=== PATIENT | male | born 1975 ===

== ENCOUNTER 2017-11-19 05:21 | Inpatient (IN) | payer BC ==
--- NOTE | 2017-11-18 11:45 | Pre-op HX & Phy Repo 2 SIG ---
DATE OF SURGERY: 11/19/2017 HISTORY OF PRESENT ILLNESS: The patient is a 42-year-old preoperative tuqz-tk-hgergm gender reassignment surgery patient in stable health. The patient does not have any gastrointestinal or genitourinary symptomatology. He has normal bowel movements. No past history of anorectal disease. The patient is having no urinary issues. PAST MEDICAL HISTORY: MEDICATIONS: Metformin, lisinopril, finasteride, spironolactone, Lipitor. ALLERGIES: None. OPERATIONS: Only procedures related to gender transitioning. REVIEW OF SYSTEMS: The patient in the past had sleep apnea that resolved with weight loss. PHYSICAL EXAMINATION: GENERAL: The patient is 5 feet 9 inches, 220 pounds. ABDOMEN: Slightly obese and soft. EXTREMITIES: Femoral pulses are 3+. There is no inguinal lymphadenopathy. RECTAL: Reveals normal perianal skin and no prolapse. IMPRESSION: Gender dysphoria, preoperative fswr-[id number] sexual reassignment surgery. DISCUSSION: I have had a full discussion with the patient regarding my role in the surgery being performed by Dr. Zeus Dee including creating the space for the vagina and proctoscopy. I have discussed the nature of the procedure, alternatives, options, and risks including bleeding, infection, trauma or injury to urinary tract or rectum that could require additional procedures, etc. All questions have been answered. The patient understands and agrees to proceed. Myles Birmingham M.D. DR: Vasiliy JOB#: [id number] CC: [email or web address]
[~2017-11-19] VITALS: Ht 175.3 cm; Wt 0.5 kg
[2017-11-19] VITALS (13 sets, daily range): BP systolic 112–138; BP diastolic 70–79
[~2017-11-19 05:21] MED LIST: ATIVAN0.5 MG ORAL; LIPITOR10 MG ORAL; LISINOPRIL10 MG ORAL; METFORMIN HCL1000 M2 ORAL
[2017-11-19] MEDS ORDERED: Propofol 200mg/20ml IV ONE (06:49)
[2017-11-19] MEDS ORDERED: Lidocaine 1% MPF 10mg/ml 5ml ONE (06:49)
[2017-11-19] MEDS ORDERED: Bupivacaine 0.25% Inj 30ml INJ ONE (07:05)
[2017-11-19] MEDS ORDERED: Bacitracin 50000 Units Vial ONE (07:05)
[2017-11-19] MEDS ORDERED: NeoSporin Gu Irrig 1ml Amp IRRIG ONE (07:05)
[2017-11-19] MEDS ORDERED: Lidocaine 1% 10mg/ml/EPI 0.01mg/ml 50ml INJ ONE (07:05)
[2017-11-19] MEDS ORDERED: Zemuron 50mg/5ml Inj IV ONE (07:20)
[2017-11-19] MEDS ORDERED: fentaNYL 100 mcg/2 mL IV ONE (07:29)
[2017-11-19] MEDS ORDERED: LR 1000ml ONE (07:30)
[2017-11-19] MEDS ORDERED: Sterile Water Irrig 1000ml IRRIG ONE (07:30)
[2017-11-19] MEDS ORDERED: NS Irrig 1000ml ONE (07:30)
--- NOTE | 2017-11-19 07:45 | Anethesia Preoperative Eval ---
Anesthesia Pre-op PMH/ROS General Date of Evaluation: Nov 19, 2017 Time of Evaluation: 07:00 Anesthesiologist: ASA Score: ASA 3 Mallampati Score Class I : Soft palate, uvula, fauces, pillars visible Class II: Soft palate, uvula, fauces visible Class III: Soft palate, base of uvula visible Class IV: Only hard plate visible Mallampati Classification: Class II Surgeon: Alter Diagnosis: gender dysphoria Surgical Procedure: gender reassignment male to female Family History: no anesthesia problems Allergies: Coded Allergies: No Known Allergies (Unverified , 11/18/17) Medications: see eMAR Past Medical History Cardiovascular: Reports: HTN; Denies: CAD, VA, valve dz, arrhythmia, other Pulmonary: Reports: BRUNO; Denies: asthma, COPD, other Gastrointestinal/Genitourinary: Denies: GERD, CRI, ESRD, other Neurologic/Psychiatric: Denies: dementia, CVA, depression/anxiety, TIA, other Endocrine: Reports: DM; Denies: hypothyroidism, steroids, other HEENT: Denies: cataract (L), cataract (R), glaucoma, SALAMATOF (L), SALAMATOF (R), other Hematology/Immune: Denies: anemia, DVT, bleeding disorder, other PSxH Narrative: rhinoplasty, breast augmentation, buttock implants Anesthesia Pre-op Phys. Exam Physician Exam Last Vital Signs Date Time Temp Pulse Resp B/P (MAP) Pulse Ox O2 Delivery O2 Flow Rate FiO2 11/19/17 06:05 97.7 81 20 112/70 (84) 98 97.7 11/19/17 05:58 Room Air Constitutional: NAD Cardiovascular: RRR Respiratory: CTA Gastrointestinal: S/NT/ND Airway Exam Mallampati Score: Class II MO: full ROM: full Teeth: intact Dentures: no upper, no lower Anesthesia Pre-op A/P Risk Assessment & Plan Assessment: asa 3 Plan: ETGA Status Change Before Surgery: No Pre-Antibiotics Drug: Ancef 1 gram, gentamycin 80mg Given Within 1 Hr of Incision: Yes Time Given: 08:15 Medina Gonzales M.D. Nov 19, 2017 07:45
--- NOTE | 2017-11-19 08:00 | Pre-Procedure Note/Attestation ---
Pre-Procedure Note/Attestation Complete Prior to Procedure Planned Procedure: not applicable Procedure Narrative: Gender confirmation surgery Indications for Procedure Pre-Operative Diagnosis: Gender dysphoria Attestation I attest that I discussed the nature of the procedure; its benefits; risks and complications; and alternatives (and the risks and benefits of such alternatives ), prior to the procedure, with the patient (or the patient's legal agency sales representative). I attest that, if there was a reasonable possibility of needing a blood transfusion, the patient (or the patient's legal agency sales representative) was given the [facility] standardized written summary, pursuant to the [place] Blood Safety Act ([place] Health and Safety Code # 1645, as amended). I attest that I re-evaluated the patient just prior to the surgery and that there has been no change in the patient's H&P, except as documented below: Zues Dee MD Nov 19, 2017 08:00
[2017-11-19] MEDS ORDERED: Dexamethasone 4mg/ml vial ONE (13:41)
[2017-11-19] MEDS ORDERED: LR 1000ml 1,000 ML IVLG SCH (13:47)
--- NOTE | 2017-11-19 13:53 | Immediate Post-Op Evaluation ---
Immediate Post-Op Evalulation Immediate Post-Op Evalulation Procedure: male to female sexual reaasignment Date of Evaluation: Nov 19, 2017 Time of Evaluation: 14:49 IV Fluids: 2700ml Blood Products: 0 Estimated Blood Loss: 500ml Urinary Output: 250ml Blood Pressure Systolic: 133 Blood Pressure Diastolic: 76 Pulse Rate: 72 O2 Sat by Pulse Oximetry: 100 Temperature (Fahrenheit): 98 Pain Score (1-10): 0 Nausea: No Vomiting: No Complications none Patient Status: awake, patent, none Hydration Status: adequate Drug: ancef 1 gram, gentamycin 80 mg Given Within 1 Hr of Incision: Yes Time Given: 08:00 Medina Gonzales M.D. Nov 19, 2017 13:53
[2017-11-19] MEDS ORDERED: Midazolam 2mg/2ml Inj IVP PRN (14:00)
[2017-11-19] MEDS ORDERED: DiphenhydrAMINE 50mg/ml Inj IVP PRN (14:00)
[2017-11-19] MEDS ORDERED: Labetalol 5mg/ml 20ml vial IV PRN (14:00)
[2017-11-19] MEDS ORDERED: fentaNYL 100 mcg/2 mL IV PRN (14:00)
[2017-11-19] MEDS ORDERED: Glycopyrrolate 0.2mg/ml 1ml Vial ONE ×2 (14:22→14:35)
[2017-11-19] MEDS ORDERED: Neostigmine 1mg/ml 10ml Inj ONE (14:22)
--- NOTE | 2017-11-19 15:06 | Operative Note - PDOC ---
Operative Note Operative Note Chief Complaint: Gender dysphoria Pre-op Diagnosis: Gender dysphoria Procedure: male to female gender confirmation surgery. Post-op Diagnosis: same as pre-op Surgeon: samir Anesthesia: general Specimen: yes Complications: none Condition: stable Estimated Blood Loss: volume - 4 Drains: EDGAR Implant(s) used?: No Zeus Dee MD Nov 19, 2017 15:06
[2017-11-19] MEDS: Hydromorphone 0.5mg/0.5ml inj IVP PRN ×2 (15:21→16:10)
[2017-11-19] MEDS ORDERED: Rate Change PCA 1 Each MISC PRN (16:00)
[2017-11-19] MEDS: PCA Morphine 1mg/ml 30 ML IV PRN ×2 (16:01→21:18)
--- NOTE | 2017-11-19 16:30 | Operative Note - Dictated ---
DATE OF OPERATION: 11/19/2017 SURGEON: Myles Birmingham M.D. ANESTHESIOLOGIST: Medina Gonzales M.D. TYPE OF ANESTHESIA: General. PREOPERATIVE DIAGNOSIS: Gender dysphoria. POSTOPERATIVE DIAGNOSIS: Gender dysphoria. OPERATION PERFORMED: Creation of the vaginal canal PROCEDURE: I arrived in the operating room at the appropriate time after initial steps in the operation had been performed by the primary surgeon, Dr. Dee. Using cautery, the central perineal tendon was incised and a space created between the urethra, prostate, and bladder superiorly and the rectum posteriorly. I used a rigid sigmoidoscope in the rectum to facilitate dissection. Hemostasis was achieved with cautery and some 3-0 Vicryl sutures. A space was created 11.5 cm in depth and 2.5 fingerbreadths in width. Once hemostasis was secure the field was flooded with saline and the rectum insufflated with the proctoscope. There was no evidence of extravasation and inspection through the proctoscope revealed no evidence of rectal wall injury. The rectum was decompressed and the scope removed. A Betadine soaked vaginal pack was placed into the operative field. Dr. Dee then continued with the surgical procedure. Myles Birmingham M.D. DR: JOSEFINA JOB#: [id number] CC: RAYMUNDO
[2017-11-19] MEDS ORDERED: Morphine Sulfate 4mg/ml Inj IV PRN (17:00)
[2017-11-19] MEDS ORDERED: Morphine Sulfate 2mg/ml Inj IV PRN (17:00)
[2017-11-19 17:07] LABS: HEMATOCRIT 30.5 % (37.0-47.0); HEMOGLOBIN 10.6 G/DL (12.0-16.0); MEAN CORPUSCULAR VOLUME 87 FL (80-99); PLATELET COUNT 267 K/UL (150-450); RED BLOOD COUNT 3.49 M/UL (4.20-5.40); RED CELL DISTRIBUTION WIDTH 11.6 % (11.6-14.8)
[2017-11-19 17:17] LABS: WHITE BLOOD COUNT 22.9 K/UL (4.8-10.8)
[2017-11-19] MEDS ORDERED: PCA Education Pamphlet MISC ONE (18:00)
[2017-11-19] MEDS: PCA shift volume MISC SCH (19:00)
[2017-11-19] MEDS ORDERED: ceFAZolin sod 1 GM in D5W 110 ML IVP SCH (20:00)
[2017-11-19 20:17] LABS: HEMATOCRIT 28.8 % (37.0-47.0); MEAN CORPUSCULAR VOLUME 87 FL (80-99); PLATELET COUNT 266 K/UL (150-450); RED BLOOD COUNT 3.31 M/UL (4.20-5.40); RED CELL DISTRIBUTION WIDTH 11.7 % (11.6-14.8); WHITE BLOOD COUNT 18.4 K/UL (4.8-10.8)
[2017-11-19] MEDS ORDERED: Zolpidem 5mg tab ORAL PRN (21:00)
[2017-11-19] MEDS: LORazepam 0.5mg tab ORAL PRN (22:11)
[2017-11-19] MEDS: D5 1/2NS w/KCl 20mEq 1,000 ML IV SCH (22:12)
[2017-11-20] VITALS: BP 103/62
--- NOTE | 2017-11-20 | Operative Note - Dictated ---
DATE OF OPERATION: 11/19/2017 PREOPERATIVE DIAGNOSIS: Bsgq-rt-yricrv gender dysphoria. POSTOPERATIVE DIAGNOSIS: Osrl-sw-krvlpf gender dysphoria. OPERATION: Svcq-xt-nymjwy gender confirmation surgery. SURGEON: Zeus Dee M.D. ANESTHESIA: General. INDICATIONS: The patient is a 42-year-old deea-rf-pdqcbp transgender patient, who has fulfilled the requirements for sexual reassignment. The patient's has had genital electrolysis. She has a normal uncircumcised penis with an adequate scrotum. OPERATION IN DETAIL: The patient was given general anesthesia. She was placed on lithotomy position and prepped and draped in usual manner. The scrotum was then excised from the penoscrotal junction to the perineum with leaving lateral scrotal skin on each side for scrotal skin grafts, which will be used for the vagina. Blunt sharp dissection was then done to dissect out each of the testicles within the tunica vaginalis down to the external rings. The right cord was clamped and double ligated with #0 silk sutures. Similar procedure was performed on the left side. A circumcision incision was then made around the penis approximately a centimeter from the pepe. The penis was then degloved and delivered into the wound created by the removal of the scrotal skin. Dissection proceeded down to the crura. The base of each crura was then ligated with a #1 Ethibond suture. Blunt and sharp dissection was then done over the pubic symphysis in the lower abdomen over the rectus. Enough of the abdominal skin was elevated so that the pubic area could be pulled posteriorly without tension. In order to keep it in that place, a bolster of 4 x 4 was placed after suturing a Prolene from the skin to the rectus and out through the skin again. When tied over the bolster, the tension was taken off of above the penile skin, which will be inverted to create the vagina. Dr. Birmingham then proceeded to make the space for the vagina. He was able to get 11.5 cm in depth. The scrotal skin graft was then debulked and thinned out. The neovagina was then formed over a large vaginal stent. The preputial skin was excised. The inverted penile skin was then sutured to the scrotal skin graft to create a intravaginal depth of approximately 12 cm. The skin graft was sutured over the vaginal stent to itself and to the inverted penile skin in order to create a normal appearance of a vaginal vault. Approximately 5 cm of the length of the skin graft was used to create the neovagina for the most deepest portion of the vagina. Incision was then made in the tunica just lateral to the urethra on each side. The tunica was then incised from the maira on each side to the very distal corporal body. The spongy tissue was then dissected off of the inside of the tunic albuginea. The cavernosal vessels were clamped, cut, and suture ligated with 4-0 PDS sutures. Marking was created to create a neoclitoris in a pentagonal shape configuration with the base at 12 o'clock with a width of approximately a centimeter. Distal penile skin that was left was then elevated on each side up to the base of the neoclitoris. An incision was then made laterally on the neoclitoris down to the tip on each side. By taking a [place] scissors through the tip of the corporal body, the small portion of the glans, which will become the neoclitoris was from the rest of the glans, but was kept attached to the tunic albuginea and the neurovascular bundles dorsally. There was excellent bleeding from the neoclitoris. The tunica was then folded on itself over the pubic symphysis and sutured in place. A clitoral leon was then made by suturing the distal penile skin to the sides of the neoclitoris and to themselves in the midline with a 5-0 Monocryl suture. Global cavernosal muscle was then dissected off of the bulb of the urethra. The urethra was then cut in the mid bulb. There was a small amount of spongiosum tissue which was sharply dissected between the urethra and the capsule of the bulb. The urethra was spatulated at the 6 o'clock position. The urethral mucosa was then sutured to the capsule of the bulbous spongiosis with a running 4-0 Monocryl suture . The inverted penile skin was then placed over the position for the neoclitoris. An inverted Y incision was made through the inverted penile skin to deliver the neoclitoris. It was then sutured in position with 5-0 Monocryl suture. A vertical incision was then made in the inverted penile skin overlying the urethra. The urethra was then delivered. The urethra was then sutured to the inverted penile skin with a running locking 4-0 Monocryl suture. A labial sulcus was then made lateral to the clitoris on each side by taking a 2-0 Monocryl suture through the skin to the endopelvic fascia and out through the skin on each side. The labia minora fold was made by doing a similar suture through the inverted penile skin to the maira of the cavernosal body on each side and then out through the inverted penile skin. The dog-ear from the inverted penile skin was then excised anteriorly to create a normal-appearing labia majora. The incision on each side was made symmetrically. Fatty areolar tissue was excised from each side to give normal amount of labia majora fullness on each side. Bleeding was meticulously controlled. A #10 Sai-Perea drain was placed through a stab incision in the perineum up along the right side and into the pubic space. A #7 Sai-Perea was placed through a stab incision in the left perineum along the left side. The neovagina was then placed in position. A 12 cm tissue crossing supervisor specifically made for this purpose was placed inside the neovaginal pouch. The neovagina was then placed in position with a 90 mL placed into the tissue crossing supervisor to give good expansion. The posterior portion of the neovagina was sutured to the perineum with interrupted 3-0 Vicryl sutures. The labia majora were closed with intradermal 4-0 Monocryl followed by subcuticular sutures of 4-0 Monocryl. Patel was left in the urethra. A bolster was placed on each side of the introitus with a Red [employer]ber [place]ar and large nylon sutures on each side of the introitus in order to close the introitus and prevent expulsion of the tissue crossing supervisor. At the conclusion of the case, the patient tolerated the procedure very well. She had blood loss of approximately 400 mL. She left the operating room in good condition. Zeus Dee M.D. DR: IVONNE JOB#: [id number] CC:
[2017-11-20] MEDS: D5 1/2NS w/KCl 20mEq 1,000 ML IV SCH ×3 (02:29→19:00)
[2017-11-20 04:00] VITALS: BP 103/61
[2017-11-20] MEDS: LORazepam 0.5mg tab ORAL PRN ×2 (05:45→14:19)
[2017-11-20] MEDS: PCA Morphine 1mg/ml 30 ML IV PRN ×3 (06:16→20:23)
[2017-11-20] MEDS ORDERED: metFORMIN 500mg tab ORAL SCH (06:30)
[2017-11-20 06:32] LABS: BASOPHILS % (AUTO) 0.4 % (0.0-2.0); EOSINOPHILS % (AUTO) 0.1 % (0.0-3.0); HEMATOCRIT 27.4 % (37.0-47.0); HEMOGLOBIN 9.1 G/DL (12.0-16.0); LYMPHOCYTES % (AUTO) 14.1 % (20.0-45.0); MEAN CORPUSCULAR VOLUME 89 FL (80-99); MONOCYTES % (AUTO) 11.2 % (1.0-10.0); NEUTROPHILS % (AUTO) 74.2 % (45.0-75.0); PLATELET COUNT 284 K/UL (150-450); RED BLOOD COUNT 3.09 M/UL (4.20-5.40); RED CELL DISTRIBUTION WIDTH 11.5 % (11.6-14.8); WHITE BLOOD COUNT 15.8 K/UL (4.8-10.8)
[2017-11-20] MEDS: PCA shift volume MISC SCH ×2 (07:00→19:12)
--- NOTE | 2017-11-20 07:38 | General Progress Note ---
Progress Note Progress Note Afebrile, VSS. Mod swelling. Small EDGAR drainage. Hct 27. Doing fine. Zeus Dee MD Nov 20, 2017 07:38
[2017-11-20 08:00] VITALS: BP 103/64
[2017-11-20] MEDS ORDERED: Lisinopril 20mg tab ORAL SCH (09:00)
[2017-11-20] MEDS: Lisinopril 10mg tab ORAL SCH (09:21)
[2017-11-20] MEDS: Enoxaparin 40mg Inj SUBQ SCH (09:22)
[2017-11-20] MEDS: metFORMIN 500mg tab ORAL SCH ×2 (09:22→17:37)
[2017-11-20 11:32] LABS: ANION GAP 6 mmol/L (5-15); BLOOD UREA NITROGEN 8 mg/dL (7-18); CALCIUM 7.9 MG/DL (8.5-10.1); CARBON DIOXIDE 27 MMOL/L (21-32); CHLORIDE 102 MMOL/L (98-107); CREATININE 0.8 MG/DL (0.55-1.30); POTASSIUM 4.1 MMOL/L (3.5-5.1); SODIUM 134 MMOL/L (136-145)
[2017-11-20 12:00] VITALS: BP 109/59
[2017-11-20] MEDS: ceFAZolin sod 1 GM in D5W 110 ML IVP SCH ×2 (13:01→21:54)
--- NOTE | 2017-11-20 14:32 | 48 Hour Post Anesthesia Eval ---
Post Anesthesia Evaluation Procedure: male to female sexual reaasignment Date of Evaluation: Nov 20, 2017 Time of Evaluation: 14:31 Blood Pressure Systolic: 118 0: 76 Pulse Rate: 74 Respiratory Rate: 22 Temperature (Fahrenheit): 97.6 O2 Sat by Pulse Oximetry: 98 Airway: patent Nausea: No Vomiting: No Pain Intensity: 3 Hydration Status: adequate Cardiopulmonary Status: stable Mental Status/LOC: patient returned to baseline Follow-up Care/Observations: n/a Post-Anesthesia Complications: none Follow-up care needed: N/A Vicente Bravo MD Nov 20, 2017 14:32
[2017-11-20] MEDS: NS IVPB SCH ×2 (15:06→21:58)
[2017-11-20] MEDS: GENTAMICIN IVPB SCH ×2 (15:06→21:58)
[2017-11-20 16:00] VITALS: BP 103/65
[2017-11-20 16:35] LABS: BASOPHILS % (AUTO) 0.8 % (0.0-2.0); EOSINOPHILS % (AUTO) 0.4 % (0.0-3.0); HEMATOCRIT 25.1 % (37.0-47.0); HEMOGLOBIN 8.5 G/DL (12.0-16.0); LYMPHOCYTES % (AUTO) 19.9 % (20.0-45.0); MEAN CORPUSCULAR VOLUME 89 FL (80-99); MONOCYTES % (AUTO) 9.1 % (1.0-10.0); NEUTROPHILS % (AUTO) 69.8 % (45.0-75.0); PLATELET COUNT 239 K/UL (150-450); RED BLOOD COUNT 2.82 M/UL (4.20-5.40); RED CELL DISTRIBUTION WIDTH 11.7 % (11.6-14.8); WHITE BLOOD COUNT 14.6 K/UL (4.8-10.8)
[2017-11-20 20:00] VITALS: BP 99/57
[2017-11-21] VITALS: BP 91/58
[2017-11-21] MEDS: LORazepam 0.5mg tab ORAL PRN ×3 (02:27→21:59)
[2017-11-21 05:00] VITALS: BP 111/66
[2017-11-21] MEDS: ceFAZolin sod 1 GM in D5W 110 ML IVP SCH ×3 (05:11→21:59)
[2017-11-21] MEDS: GENTAMICIN IVPB SCH ×2 (05:12→13:44)
[2017-11-21] MEDS: NS IVPB SCH ×2 (05:12→13:44)
[2017-11-21 06:51] LABS: BASOPHILS % (AUTO) 0.8 % (0.0-2.0); EOSINOPHILS % (AUTO) 0.6 % (0.0-3.0); HEMATOCRIT 25.3 % (37.0-47.0); HEMOGLOBIN 8.4 G/DL (12.0-16.0); LYMPHOCYTES % (AUTO) 15.6 % (20.0-45.0); MEAN CORPUSCULAR VOLUME 89 FL (80-99); MONOCYTES % (AUTO) 9.5 % (1.0-10.0); NEUTROPHILS % (AUTO) 73.5 % (45.0-75.0); PLATELET COUNT 233 K/UL (150-450); RED BLOOD COUNT 2.85 M/UL (4.20-5.40); RED CELL DISTRIBUTION WIDTH 11.4 % (11.6-14.8); WHITE BLOOD COUNT 12.8 K/UL (4.8-10.8)
[2017-11-21] MEDS: PCA shift volume MISC SCH (07:16)
[2017-11-21 08:00] VITALS: BP 112/71
[2017-11-21] MEDS ORDERED: Mylanta II UD 30ml ORAL PRN (08:15)
[2017-11-21] MEDS: metFORMIN 500mg tab ORAL SCH ×2 (08:19→17:06)
[2017-11-21] MEDS: Lisinopril 10mg tab ORAL SCH (08:19)
[2017-11-21] MEDS: Enoxaparin 40mg Inj SUBQ SCH (08:20)
--- NOTE | 2017-11-21 08:45 | General Progress Note ---
Progress Note Progress Note Afebrile. VSS. Drainge small. HCt stable at 25. Doing well. Zeus Dee MD Nov 21, 2017 08:45
[2017-11-21] MEDS: PCA Morphine 1mg/ml 30 ML IV PRN ×2 (09:14→22:05)
[2017-11-21 12:00] VITALS: BP 124/73
[2017-11-21 16:00] VITALS: BP 105/72
[2017-11-21] MEDS ORDERED: Tubing IV Secondary IV ONE (16:50)
[2017-11-21] MEDS ORDERED: NS 500ML ONE (16:50)
[2017-11-21 20:00] VITALS: BP 108/70
[2017-11-22] VITALS: BP 113/66
[2017-11-22 04:00] VITALS: BP 108/66
[2017-11-22] MEDS: ceFAZolin sod 1 GM in D5W 110 ML IVP SCH ×3 (06:01→21:26)
[2017-11-22 06:22] LABS: HEMATOCRIT 23.7 % (37.0-47.0); HEMOGLOBIN 7.9 G/DL (12.0-16.0); MEAN CORPUSCULAR VOLUME 88 FL (80-99); PLATELET COUNT 225 K/UL (150-450); RED BLOOD COUNT 2.69 M/UL (4.20-5.40); RED CELL DISTRIBUTION WIDTH 11.2 % (11.6-14.8); WHITE BLOOD COUNT 11.5 K/UL (4.8-10.8)
[2017-11-22 08:00] VITALS: BP 118/60
--- NOTE | 2017-11-22 08:03 | General Progress Note ---
Progress Note Progress Note Afebrile. VSS. Small EDGAR drainage.Wounds fine. Hct 23, Doing fine Zeus Dee MD Nov 22, 2017 08:03
[2017-11-22] MEDS: metFORMIN 500mg tab ORAL SCH ×2 (08:19→17:54)
[2017-11-22] MEDS: Lisinopril 10mg tab ORAL SCH (08:21)
[2017-11-22] MEDS: Enoxaparin 40mg Inj SUBQ SCH (08:22)
[2017-11-22 12:00] VITALS: BP 108/69
[2017-11-22] MEDS: PCA Morphine 1mg/ml 30 ML IV PRN (13:30)
[2017-11-22] MEDS: LORazepam 0.5mg tab ORAL PRN ×2 (13:42→21:22)
[2017-11-22 16:00] VITALS: BP 108/66
[2017-11-22 20:00] VITALS: BP 105/69
[2017-11-23] VITALS: BP 111/72
[2017-11-23 04:00] VITALS: BP 109/69
[2017-11-23] MEDS: ceFAZolin sod 1 GM in D5W 110 ML IVP SCH ×3 (05:37→20:49)
[2017-11-23 08:00] VITALS: BP 113/72
[2017-11-23] MEDS: Lisinopril 10mg tab ORAL SCH (08:26)
[2017-11-23] MEDS: metFORMIN 500mg tab ORAL SCH ×2 (08:26→17:49)
[2017-11-23] MEDS: Enoxaparin 40mg Inj SUBQ SCH (08:27)
[2017-11-23] MEDS: PCA Morphine 1mg/ml 30 ML IV PRN (09:31)
--- NOTE | 2017-11-23 09:37 | General Progress Note ---
Progress Note Progress Note Afebrile, wounds fine, yakelin HERNÁNDEZ. Hct 24 . Discussed with Matthew two units of autologous blood. Zeus Dee MD Nov 23, 2017 09:37
[2017-11-23 12:00] VITALS: BP 111/68
[2017-11-23 16:00] VITALS: BP 116/71
[2017-11-23 20:00] VITALS: BP 117/70
[2017-11-23] MEDS: LORazepam 0.5mg tab ORAL PRN (20:49)
[2017-11-24] VITALS: BP 107/63
[2017-11-24 04:00] VITALS: BP 123/73
[2017-11-24] MEDS: ceFAZolin sod 1 GM in D5W 110 ML IVP SCH ×3 (05:42→21:03)
[2017-11-24 08:00] VITALS: BP 115/74
[2017-11-24] MEDS: metFORMIN 500mg tab ORAL SCH ×2 (08:32→17:19)
[2017-11-24] MEDS: Lisinopril 10mg tab ORAL SCH (08:33)
[2017-11-24] MEDS: Enoxaparin 40mg Inj SUBQ SCH (08:40)
[2017-11-24] MEDS: PCA Morphine 1mg/ml 30 ML IV PRN (08:50)
[2017-11-24 12:00] VITALS: BP 121/78
[2017-11-24] MEDS: LORazepam 0.5mg tab ORAL PRN ×2 (13:34→21:03)
[2017-11-24 16:00] VITALS: BP 120/71
[2017-11-24 20:00] VITALS: BP 125/72
[2017-11-24 20:12] LABS: BASOPHILS % (AUTO) 0.8 % (0.0-2.0); EOSINOPHILS % (AUTO) 4.6 % (0.0-3.0); HEMATOCRIT 28.2 % (37.0-47.0); HEMOGLOBIN 9.3 G/DL (12.0-16.0); LYMPHOCYTES % (AUTO) 22.6 % (20.0-45.0); MEAN CORPUSCULAR VOLUME 89 FL (80-99); MONOCYTES % (AUTO) 6.9 % (1.0-10.0); NEUTROPHILS % (AUTO) 65.1 % (45.0-75.0); PLATELET COUNT 286 K/UL (150-450); RED BLOOD COUNT 3.16 M/UL (4.20-5.40); RED CELL DISTRIBUTION WIDTH 12.1 % (11.6-14.8); WHITE BLOOD COUNT 11.6 K/UL (4.8-10.8)
[2017-11-25] VITALS: BP 127/84
[2017-11-25] MEDS: PCA Morphine 1mg/ml 30 ML IV PRN (00:21)
[2017-11-25 04:00] VITALS: BP 115/74
[2017-11-25] MEDS: LORazepam 0.5mg tab ORAL PRN (05:03)
[2017-11-25] MEDS: ceFAZolin sod 1 GM in D5W 110 ML IVP SCH (05:38)
[2017-11-25 08:00] VITALS: BP 129/87
--- NOTE | 2017-11-25 08:09 | General Progress Note ---
Progress Note Progress Note Afebrile. VSS. Drains and vag stent out. Wound fine except superificial epidermolysis on right introitus. Hct 28 after two units. Can be discharged. Zeus Dee MD Nov 25, 2017 08:09
--- NOTE | 2017-11-25 08:13 | Discharge Instructions ---
Discharge Instructions Discharge Instructions Diet: regular Resume Normal Activity?: No Activity: light activity Follow Up Orders See me in office Return to Work/School on: Nov 27, 2017 For Congestive Heart Failure Reminder Report to your physician any weight gain of 5 pounds or more in one week. Zeus Dee MD Nov 25, 2017 08:13
[2017-11-25] MEDS: metFORMIN 500mg tab ORAL SCH (08:46)
[2017-11-25] MEDS: Enoxaparin 40mg Inj SUBQ SCH (08:46)
[2017-11-25] MEDS: Lisinopril 10mg tab ORAL SCH (08:46)
[2017-11-25 12:00] VITALS: BP 132/87
--- NOTE | 2017-11-26 11:50 | Discharge Summary ---
Discharge Summary Hospital Course Date of Admission Nov 19, 2017 at 05:21 Date of Discharge Nov 25, 2017 at 12:44 Admitting Diagnosis gender dysphoria. Reason for Hospitalization: Qoha-lz-pmubsy gender confirmation surgery. HEATH Torres is a 42 year old female who was admitted on Nov 19, 2017 at 05:21 for gender dysphoria Patient was admitted for [id number]-[id number] gender confirmation surgery. Consultations dr Birmingham general surgeon Procedures s/p 11/19/[address] Kong Pkzx-zj-aqesrc gender confirmation surgery. s/p 11/19/[address] Birmingham Creation of the vaginal canal Hospital Course s/p surgery course of recovery uneventful initially with EDGAR drains and vaginal stent, output closely monitored pain management: pain addressed and controlled wound care hemoglobin and hematocrit were closely monitored, noted trend down patient was transfused with 2 units of packed red blood cells prior to discharge hemoglobin 9.3 hematocrit 28.2 home medications were resumed blood pressure was managed with MAR inhibitor and remained stable blood sugar was managed with metformin and diabetic diet statin was continued DVT prophylaxis provided on 11/25 drains and vaginal stent were discontinued patient ambulated voided freely tolerated diet pain controlled leukocytosis trending down, afebrile Discharge instruction provided surgeon cleared for discharge home with outpatient follow-up 11/27 at the office FINAL DIAGNOSES gender dysphoria. s/p [id number] gender confirmation surgery anemia, s/p 2 u PRBC Discharge Condition Upon Discharge: stable Discharge Disposition Patient was discharged to Discharge Instructions Discharge Instructions Activity: light activity May Return to Work/School On: Nov 27, 2017 Special Instructions I have been assigned to complete a D/C Summary on this account. I was not involved in the patient management Adele Javier NP Nov 26, 2017 11:50
== END 2017-11-25 12:44 | disposition home or self-care (01) | DRG 876 ==
LOC: SDSOVERFLO 05:21 → EDSEX 05:21 → 3E 16:27
PROC: 0W4M0Z0 (ICD-10-PCS; principal; 2017-11-19 07:30)
PROC: 30233N0 Transfusion of Autologous Red Blood Cells into Peripheral Vein, Percutaneous Approach (ICD-10-PCS; 2017-11-23)
DX: F64.0 Transsexualism (principal); D64.9 Anemia, unspecified
CPT/HCPCS: 36415; 80048; 82962; 85007; 85025; 86850; 86900; 86901; 86920; 87081; 94003; 94150; J1580; J2405; J2710